=== PATIENT | male | born 2000 | race Hispanic/Latino ===

== ENCOUNTER 2023-10-13 12:30 | Emergency (ER) | payer OTHER ==
[2023-10-13] MEDS ORDERED: Ketorolac Tromethamine 30 MG/ML VIAL ONE (12:59)
== END 2023-10-13 14:03 | disposition home or self-care (01) ==
LOC: ERS 12:30
DX: S06.0XAA Concussion with loss of consciousness status unknown, initial encounter (principal); S16.1XXA Strain of muscle, fascia and tendon at neck level, initial encounter; V29.608A Unspecified rider of other motorcycle injured in collision with unspecified motor vehicles in traffic accident, initial encounter
CPT/HCPCS: 70450; 71045; 72125; 96374; G0390; J1885